=== PATIENT | female | born 1965 | race Caucasian/White ===

== ENCOUNTER → 2016-09-03 | Outpatient (CLI) | payer MEDICARE, MEDICAID ==
--- NOTE | ~2016-09-03 | NDGEN ---
PATIENT'S NAME: [facility] AGE: 51 Y [address] ROOM: [place] [id number] LOCATION: [facility] ADMIT DATE: 09/03/2016 [facility] DISCHARGE DATE: FAMILY PHYSICIAN: Consuelo Macario DO ATTENDING PHYSICIAN: Herbert Carranza PROCEDURE: NERVE CONDUCTION STUDY BILATERAL UPPER EXTREMITIES TO RULE OUT FOCAL NEUROPATHY. DATE OF PROCEDURE: 09/03/2016 INDICATIONS: This is a 51-year-old female patient who complains about some pain on the dorsum aspect of the left hand, somewhat in a radial dermatomal distribution. Some of this numbness radiates into the forearm where there is an area of padded-like lipomatous mass that is on the dorsum of the forearm and some tingling extends from that region into the back of the hand. There is absolutely no numbness into the ulnar or median dermatomal distribution. She has full power on dorsiflexion of the wrist and extension of the wrist and extension of the fingers in both hands. 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 Her upper extremity power is normal including the triceps power which is symmetric, and biceps and supraspinatus and infraspinatus power is normal. Motor and sensory nerve conductions were done into the median and ulnar nerves. There were completely normal motor onset latencies, amplitudes, and nerve conduction velocities seen in the bilateral median and ulnar nerves. Bilateral median and ulnar motor nerves as well as normal sensory nerve action potentials with normal peak onset latencies in the bilateral median and ulnar nerves of the hands. F-wave studies were also completely within normal limits. Due to the fact the patient had completely normal power and no evidence for radiculopathy, a needle EMG was unnecessary in this study. IMPRESSION: This is a normal nerve conduction study of the bilateral upper extremities. The patient possibly has some numbness into the radial sensory distribution of the hand, which is difficult to stimulate on nerve conduction studies. In may be associated with a benign fatty head on the extensor aspect of the forearm. There does not appear to be any evidence for compression of nerves at the wrist or focal compression of nerves tested elsewhere in the upper arm and forearm. KIMBERLEY THAYER MD PATIENT'S NAME: [facility] AGE: 51 Y [address] ROOM: [place] [id number] LOCATION: [facility] ADMIT DATE: 09/03/2016 [facility] DISCHARGE DATE: FAMILY PHYSICIAN: Consuelo Macario DO ATTENDING PHYSICIAN: Herbert Carranza/adonay /[id number] dtt: 09/08/162221 , KIMBERLEY THAYER dtd: 09/03/162030
== END | disposition disaster alternative care site (69) ==
LOC: GNEU 14:34
DX: R20.0 Anesthesia of skin (principal); R20.2 Paresthesia of skin